=== PATIENT | male | born 1985 | race Caucasian/White ===

== ENCOUNTER 2018-03-19 03:56 | Emergency (ER) | payer SELFPAY | END 2018-03-19 04:14 | disposition left against medical advice (07) | LOC: ED 03:56 | DX: Z53.21 Procedure and treatment not carried out due to patient leaving prior to being seen by health care provider (principal) ==

== ENCOUNTER → 2018-04-19 | Emergency (ER) | payer OTHER ==
--- OUTSIDE RECORDS SUMMARY | 2018-04-19 21:04 | XMS ---
PreManage Notification: NIRALI EDUARDO [employer] Events 1 event(s) in the past 18 months Most recent security events: Elopement at [facility] 03/19/2018 03:58 - Patient eloped before treatment completed. Details: AMA CRITERIA MET - Group Notification CARE PROVIDERS There are no care providers on record at this time. Matt has no Care Guidelines for this patient. E.DRafael VISIT COUNT (12 MO.) 2 [facility] TOTAL 2 NOTE: Visits indicate total known visits. ED/UCC VISIT TRACKING (12 MO.) [facility] COM[facility]: [facility] COMPLAINT: - MENTAL HEALTH EVAL DIAGNOSES: - Encounter for other general examination - Procedure and treatment not carried out due to patient leaving prior to being seen by health care provider INPATIENT VISIT TRACKING (12 MO.) No inpatient visits to display in this time frame [email or web address]
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
== END ==
LOC: ED 21:00
PROC: 0HQGXZZ Repair Left Hand Skin, External Approach (ICD-10-PCS; principal; 2018-04-19)
PROC: 0HQFXZZ Repair Right Hand Skin, External Approach (ICD-10-PCS; 2018-04-19)
DX: S61.411A Laceration without foreign body of right hand, initial encounter (principal); S61.412A Laceration without foreign body of left hand, initial encounter; S27.0XXA Traumatic pneumothorax, initial encounter; S01.311A Laceration without foreign body of right ear, initial encounter; S13.4XXA Sprain of ligaments of cervical spine, initial encounter; S27.321A Contusion of lung, unilateral, initial encounter; F19.10 Other psychoactive substance abuse, uncomplicated; Z23 Encounter for immunization; V89.2XXA Person injured in unspecified motor-vehicle accident, traffic, initial encounter
CPT/HCPCS: 12002; 70450; 70486; 71045; 71260; 72125; 72170; 73060; 73090; 73130; 73552; 73560; 73590; 74177; 80053; 81001; 82150; 82550; 83690; 85025; 85027; 86850; 86900; 86901; 90471; 90715; 96374; 96375; 99285; G0480; J2270; J2405; Q9967